=== PATIENT | female | born 1985 | race Caucasian/White ===

== ENCOUNTER 2016-08-25 11:47 | Day surgery (SDC) | payer OTHER ==
[~2016-08-25] VITALS: Ht 172.7 cm; Wt 55.6 kg
[2016-08-25] VITALS (8 sets, daily range): BP systolic 99–119; BP diastolic 51–74; PULSE 63–77; RESP 15–26; O2SAT 97–100
[~2016-08-25 11:47] MED LIST: CALC-952 PO; MISO200T4 VAGINAL
[2016-08-25] MEDS ORDERED: Ondansetron 2 mg/mL 2 mL Inj ONE (11:48)
[2016-08-25] MEDS ORDERED: fentaNYL-PF 50 mCg/mL 2 mL Inj ONE (11:48)
[2016-08-25] MEDS ORDERED: Dexamethasone 4 mg/mL Inj ONE (11:48)
[2016-08-25] MEDS ORDERED: Phenylephrine/NS 100 mCg/mL 10 mL Syringe IVPUSH ONE (11:48)
[2016-08-25] MEDS ORDERED: MetoCLOpramide 5 mg/mL 2 mL Inj ONE (11:48)
[2016-08-25] MEDS ORDERED: Propofol 10,000 mCg/mL 20 mL Inj ONE (11:48)
[2016-08-25] MEDS: Lactated Ringer's 1,000 ML IV SCH ×2 (12:38→13:55)
[2016-08-25] MEDS: fentaNYL-PF 50 mCg/mL 2 mL Inj ONE ×2 (12:44→12:50)
--- NOTE | 2016-08-25 13:43 | PCM.HPANE ---
Patient Data Surgeon Admitting Provider: Attending Provider:Gerardo Nguyen MD Primary Care Physician:Conchis Mcconnell MD Other Provider:Sameera Watkinsingham Anesthesia Reason for Visit Excessive Menstruation Ht/WT & BMI Height (Feet): 5 Height (Inches): 6 Weight (Kilograms): 54.884 Body Mass Index 19.00 Allergies Coded Allergies: citalopram hydrobromide (Verified Allergy, Severe, rash,ITCHING, 08/23/16) Uncoded Allergies: oral pain meds (percocet,vicodin,tyl#3) (Adverse Reaction, Severe, N&V, 05/30) Past Anesthesia History Anesthesia History: Denies:: Anesthesia Reactions, Malignant Hyperthermia Diabetes History Hx Diabetes?: No MRSA MRSA: No Medications Reported Medications Misoprostol 200 Mcg [id number] Mcg VAGINAL 6H PRIOR TO SURGERY 08/23/16 Calcium Carbonate/Vitamin D3 (Calcium 500 mg Chewable Tablet)1 Each Tab.chew1 Each PO DAILY 08/23/16 History History of ENT Problems?: No Hx of Heart Problems?: No Cardiovascular History: Denies:: Congestive Heart Failure Heart Murmur Hypertension Hx of Respiratory Problem?: No Respiratory History: Denies:: Tuberculosis Use of C-PAP Machine Hx Neurologic Problems?: Yes Neurological History: Positive for:: Headaches Hx of GI Problems?: No Gastrointestinal History: Positive for:: Heartburn (OCCASIONALLY) Hx of Problems?: No Genitourinary History: Positive for:: Urinary Tract Infection (HX OF) Female Hx: Denies:: Currently (S/P BTL HX MISSED AB'S X2,TOXIC SHOCK SYND 2016 FROM RETAINED TAMPON) Skin History: Denies:: History Skin Disorders? Pressure Ulcers Hx Musculoskeletal Problems?: No Hx of Psycho/Social Problems?: Yes Psycho Social History: Positive for:: Hx Depression (HX OF) Denies:: Suicide Attempt (SUICIDAL IDEATION & SELF-MUTILATION (FOREARM CUTTING ) A TEEN) Hx Surgeries?: Yes (BTL) Hx Any Other Health Problems?: Yes Other History: Positive for:: Hospitalization (CHILDBIRTH) Denies:: Cancer Endocrine Disease Thyroid Disease History Blood Transfusions: Denies:: Blood Transfusions Hx Diabetes: No Hx Alcohol Use: Yes (MINIMAL)Hx Substance Use: No Smoking Status: Current Every Day Smoker Have You Smoked inLast 12 mo: YesApprox How Many Cigarettes/day: 1 PPD Stop/Bang S-Snoring: Do You Snore Loudly: No T-Tired: feel tired, fatigued: No O-Obsered: Observed not breath: No P-Blood Pressure: treated: No B- Body Mass Index > 35 kg/m2: No A- Age over 50: No N- Neck Large Circumference: No G- Gender Male: No DENNYS Total Score: 0 Risk Assessment Category Category 1A: Patient has history of documented sleep apnea, and HAS NOT received any narcotic, sedative or anesthesia administration during this stay. Category 1B: Patient has history of documented sleep apnea, and HAS received any narcotic , sedative or anesthesia administration during this stay Category 2: Patient has SUSPECTED Obstructive Sleep Apnea, and HAS received any narcotic , sedative or anesthesia administration during this stay. Category 3: Patient has SUSPECTED Obstructive Sleep Apnea and HAS NOT received narcotic, sedative or anesthesia administration during this stay. Category 4: Outpatient in Procedural Areas with known sleep apnea or who screen positive for High Risk via the STOP/BANG questionnaire. Exam Exam General Appearance: Alert, Oriented X3, Cooperative, No Acute Distress HEENT/AIRWAY: MP 2 Lungs: Clear to Auscultation Heart: Exam Unremarkable Plan Impression Patient chart reviewed, patient interviewed and anesthestic plan with risks, benefits, and alternatives discussed, and informed consent obtained. ASA Physical Status: ASA2 Mod Systemic Disease Anesthetic Plan: GA Bene/Risks/Altern/Consents: Yes HP Complete Prior to Induction: Yes Glenroy Dunne MD Aug 25, 2016 07:43
[2016-08-25] MEDS ORDERED: Lactated Ringer's 1,000 ML IV SCH (14:06)
[2016-08-25] MEDS ORDERED: Lactated Ringer's 500 ML IV PRN (14:06)
[2016-08-25] MEDS ORDERED: EPHEDrine Sulfate 50 mg/mL Inj IVPUSH PRN (14:10)
[2016-08-25] MEDS ORDERED: MetoCLOpramide 5 mg/mL 2 mL Inj IVPUSH PRN (14:10)
[2016-08-25] MEDS ORDERED: HYDROmorphone 1 mg/mL Inj IVPUSH PRN (14:10)
[2016-08-25] MEDS ORDERED: Dexamethasone 4 mg/mL Inj IVPUSH PRN (14:10)
[2016-08-25] MEDS ORDERED: fentaNYL-PF 50 mCg/mL 2 mL Inj IVPUSH PRN (14:10)
[2016-08-25] MEDS ORDERED: Ondansetron 2 mg/mL 2 mL Inj IVPUSH PRN ×2 (14:10→15:00)
[2016-08-25] MEDS ORDERED: Phenylephrine 10,000 mCg/mL Inj IVPUSH PRN (14:10)
[2016-08-25] MEDS ORDERED: diphenhydrAMINE 25 mg Capsule PO PRN (15:00)
--- NOTE | 2016-08-25 15:05 | PCM.ANEP1 ---
Post Anesthesia Phase 1 PACU Phase 1 Assessment Vital Signs Vital Signs Date Time Temp Pulse Resp B/P Pulse Ox O2 Delivery O2 Flow Rate FiO2 08/25/16 12:17 36.7 72 18 119/74 100 Room Air Anesthetic Administered: GA Level of Alertness: Sleeping, hard to arouse FAJARDO's with Equal Strength: Yes Oxygen Delivery: Room Air Lungs: Clear to Auscultation Glenroy Dunne MD Aug 25, 2016 15:05
--- NOTE | 2016-08-25 15:09 | PCM.ANEP2 ---
Post Anesthesia Evaluation ASA/CMS Post Anesthesia VS in Patient's Normal Range?: Yes Resp Stable; Airway Patent?: Yes CV Function & Hydration Stable: Yes Mental Status Recovered?: Yes Pain control Satisfactory?: Yes N/V Control Satisfactory?: Yes Glenroy Dunne MD Aug 25, 2016 15:09
--- NOTE | 2016-08-25 16:35 | OP ---
[address] [address] OPERATIVE REPORT PATIENT: MARIAN GOODWIN : 1985 MR#: [id number] ADMIT: 08/25/2016 JOB ID: [id number] DATE OF SURGERY: 08/25/2016 PREOPERATIVE DIAGNOSIS(ES): A 31-year-old 6, para 4-0-2-4 with five years of menorrhagia, endometrial biopsy negative in August 2015.Normal pelvic ultrasound on November 21, 2015. The patient has migraine headache with aura and history of five years of cigarette smoking. Estrogen is contraindicated. She also declined hormonal intrauterine device and she has a prior history of tubal sterilization in 2009 and opted for endometrial ablation. POSTOPERATIVE DIAGNOSIS(ES): A 31-year-old 6, para 4-0-2-4 with five years of menorrhagia, endometrial biopsy negative in August 2015.Normal pelvic ultrasound on November 21, 2015. The patient has migraine headache with aura and history of five years of cigarette smoking. Estrogen is contraindicated. She also declined hormonal intrauterine device and she has a prior history of tubal sterilization in 2009 and opted for endometrial ablation. PROCEDURE: 1. Hysteroscopy, dilatation and curettage. 2. NovaSure endometrial ablation. SURGEON: Gerardo Nguyen MD. 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 COMPLICATIONS: None. PACKS: None. DRAINS: None. CATHETERS: In and out catheter at the beginning of the procedure with approximately 50 cc out of clear urine. BLOOD LOSS: 30 cc. IV FLUIDS: 900 cc of crystalloid. DISTENTION MEDIA: For hysteroscopy was normal saline with a deficit of 100 cc at the end of the procedure. SPECIMEN REMOVED: Cervical and endometrial curettage sent to pathology, two specimens. ANESTHESIA: General endotracheal. FINDINGS: 1. Examination under anesthesia revealed average-sized anteverted uterus. No adnexal masses appreciated bilaterally. 2. Hysteroscopic examination showed patent tubal ostia bilaterally. No polyps. No fibroids. No masses in endometrium. Patient started her menstruation today. 3. Ablation findings: Cervical length 3 cm. Uterine cavity length 5 cm. Uterine cavity maximum width achieved 3.9 cm. Ablation cycle lasted for 1 minute and 16 seconds. PROCEDURE IN DETAIL: Risks, benefits and alternatives of the procedure were discussed with the patient. Informed consent signed. The patient moved to the OR with IV running. After general anesthesia was found to be adequate, the patient was placed in dorsal lithotomy position. Examination under anesthesia revealed the above findings. The patient was then prepped and draped in the normal sterile fashion. Weighted speculum inserted into the patient's vagina. Anterior lip of the cervix was grasped with a single-tooth tenaculum. The uterus was sounded to 8 cm. Cervical length was noted to be 3 cm. Then, the cervix was dilated up to Hegar dilator #7 and then MyoSure hysteroscope was introduced into the patient's uterus. Upon good visualization, after distention with normal saline, the above findings were noted. Then, the hysteroscope was removed and cervical curettage performed followed by endometrial curettage using sharp curette. The cervix was dilated up to Hegar dilator #8 and the NovaSure device was checked outside the patient and confirmed to have intact array. Then the array was retracted and the NovaSure device introduced into the patient's uterus with uterine cavity length of 5 cm adjusted, and then with appropriate movements and while opening the array gradually, maximum cavity width achieved with 3.9 cm. The cavity assessment was completed followed by completed ablation cycle that lasted for 1 minute and 16 seconds. Then, the NovaSure device was removed from the patient's uterus after closing the array and it was opened again outside the patient and tested to be still intact. A 2nd look with MyoSure hysteroscope confirmed adequate ablation of the entire endometrial cavity. Pictures taken. All instruments removed from the patient's vagina. Single-tooth tenaculum insertion site was bleeding. Pressure did not control bleeding, so Monsel solution was applied. Good hemostasis was assured. The patient tolerated the procedure well. Sponge and instrument counts were correct x2. The patient was recovered in a stable condition. Dr. Nguyen was present and scrubbed for the entire procedure. KIMBERLYN
--- NOTE | 2016-08-26 14:21 | PATH ---
SURGICAL PATHOLOGY Attending Physician:Gerardo Nguyen MD CASE STATUS: Signed Out PATIENT NAME: MARIAN GOODWIN PID: [id number] : 1985 DATE COLLECTED:08/25/2016 22:29 SPECIMEN: 1: Endocervix, Curettage 2: Endometrium, Curettage CLINICAL HISTORY: EXCESSIVE MENSTRUATION 1). ENDOCERVICAL CURETTINGS 2). ENDOMETRIAL CURETTINGS FINAL DIAGNOSIS: 1.ENDOCERVICAL CURETTINGS: FRAGMENTS OF ENDOCERVICAL TISSUE, SQUAMOUS EPITHELIUM, AND PROLIFERATIVE ENDOMETRIUM, ALL NEGATIVE FOR ATYPIA. 2.ENDOMETRIAL CURETTINGS: FRAGMENTS OF PROLIFERATIVE ENDOMETRIUM WITH CHANGES OF GLANDULAR AND STROMAL BREAKDOWN, NEGATIVE FOR ATYPIA. ICD10 CODE N92 GROSS DESCRIPTION: The specimen is received in two formalin filled containers labeled with the patient's name. 1). The specimen is sublabeled "endocervical curettings" and consists of a less than 0.25 cc aggregate of tissue, mucoid material and blood which is filtered and entirely submitted in cassette 1A. 2). The specimen is sublabeled "endometrial curettings" and consists of approximately a 1.0 cc aggregate of tissue, mucoid material blood which is filtered and entirely submitted in cassette 2A. 08/25/2016 DAC MICRO DESCRIPTION: See diagnosis. ICD-9 CODES: CPT CODES: 1: 57057 2: 24096 Electronically Signed Out Gregg Trujillo MD [facility] Pathology [facility], [place] [address] Technical component performed at [facility], [address] [place] [address] Ave[address], [place], [address]
== END 2016-08-25 23:59 | disposition home or self-care (01) ==
LOC: SAS 11:47
PROVIDERS: ATTEND Obstetrics & Gynecology
DX: N92.0 Excessive and frequent menstruation with regular cycle (principal); F17.210 Nicotine dependence, cigarettes, uncomplicated
CPT/HCPCS: 58563; J1100; J2175; J2250; J2370; J2405; J2765; J7120

== ENCOUNTER 2017-05-03 18:47 | Emergency (ER) | payer OTHER ==
[~2017-05-03] VITALS: Ht 171.4 cm; Wt 58.2 kg
[2017-05-03 18:55] VITALS: BP 125/70; RESP 16; O2SAT 99
--- NOTE | 2017-05-03 19:21 | ED.REPORT ---
HPI-General Illness Date of Service May 03, 2017 ED Provider: Gregg Thomas MD Pt is a healthy 31 year old female who presents to the ED c/o facial pain and numbness from a possible sinusitis onset 4 days ago. She went to three days ago for similar symptoms in which they tested for strep and influenza that was negative, so they sent her home with a diagnosis of a head cold. Additional symptoms include nasal congestion, rhinorrhea, cough, gum pain, dentition pain, jaw pain, mild ear pain, chest pain when coughing, and intermittent sore throat with associated dysphagia. Pt denies diarrhea, fever, or vomiting. Nursing Notes Stated Complaint: POSS SINUS INFECTION Chief Complaint: ENT & Mouth Nursing Notes Reviewed: Yes Allergies: Coded Allergies: citalopram hydrobromide (Verified Allergy, Severe, rash,ITCHING, 08/23/16) Uncoded Allergies: oral pain meds (percocet,vicodin,tyl#3) (Adverse Reaction, Severe, N&V, 05/30) Scheduled Calcium Carbonate/Vitamin D3 (Calcium 500 mg Chewable Tablet) 1 Each Tab.chew 1 EACH PO DAILY Misoprostol (Misoprostol) 200 Mcg Tablet 200 MCG VAGINAL 6H PRIOR TO SURGERY Triamcinolone Acetonide (Nasacort) 10.8 Ml [place] 10.8 ML NS DAILY General Time Seen by MD: 19:21 Chief Complaint Other (Facial pain and numbness) Hx Obtained From: Patient Arrived By: Walk-in Sudden in Onset?: No Onset Occurred: 4 days ago Symptom Duration: Constant Quality: Painful Severity: Current: Mild Severity: Maximum: Moderate Recent Healthcare: No recent doctor visit, No recent hospitalization Similar Sx Previous: No Past Medical History Past Medical History None Past Surgical History Reports: Tubal ligation Smoking History Current Every Day Smoker Social History having heavy periods, reason for IUD placement Alcohol Use: "Social" Drug Use: Denies drug use Other Social History: Good social support Occupation lives with boyfriend and 4 children Ambulatory Status Independent Review of Systems Facial pain Rhinorrhea Gum pain Jaw pain Full Review of Systems Constitutional: Denies: Fever Ears / Nose / Throat: Reports: Earache bilateral (mild), Nasal congestion, Sinus problem, Sore throat (intermittent with associated dysphagia), Toothache Respiratory: Reports: Prod cough, clear Cardiovascular: Reports: Chest pain (when coughing) GI: Denies: Diarrhea, Vomiting Complete sys rev & neg: except as marked. Physical Exam Vital Signs Vital Signs Date Time Temp Pulse Resp B/P Pulse Ox O2 Delivery O2 Flow Rate FiO2 05/03/17 20:29 36.8 92 14 122/68 98 Room Air 05/03/17 18:55 36.8 95 16 125/70 99 Room Air Initial VS: Reviewed Extremities: Vascular intact, Neuro intact, No swelling, No tenderness Skin: Warm, Dry, No cyanosis Neurologic: Alert, Oriented, Nonfocal Psychiatric: Mood/affect normal, Behavior normal, Normal thought content General/Constitutional: Awake, Alert Head / Eyes: Atraumatic, Normocephalic, EOMI No facial swelling Facial tenderness to percussion ENT: Atraumatic, Airway patent Nasal mucosa boggy, clear mucus Post nasal drip in back of throat, clear mucus Neck: Supple, Full range of motion No cervical adenopathy Respiratory / Chest: Atraumatic, Breath sounds NL, Breath sounds = bilat, No respiratory distress Re-Eval/Medical Decision Source of Hx: Old records Time of Eval: 19:50 Re-Evaluation/Progress Note: Discussed plan for discharge. Patient understands and agrees with plan. F/U instructions and RTER warnings given. All questions addressed at this time. Counseled Regarding: Diagnosis, Lab results, Need for follow-up, When/why to return to ED Discharge & Departure Primary Impression: Acute rhinosinusitis Disposition: Home Discharge Condition All VS Reviewed: Yes Condition: Stable Patient Instructions: Upper Respiratory Infection (ED) Additional Instructions: Emergency department evaluation including interview and examination. Symptoms and examination are consistent with a viral upper respiratory infection leading to sinus congestion. Antibiotics are not indicated in this situation. Things that will help him feel better include using nasal steroid solution to rinse nostrils1-2 times daily, using an OTC nasal decongestant such as afrin or sudafed nasal spray for no more than 3 days, Use a nasal steriod spray daily. Tylenol or ibuprofen as needed for pain. Re-check at urgent care if not improved in 4-5 days. Return to ED for trouble breathing, fevers, severe headache. Referrals: Conchis Mcconnell MD (PCP) Scribe Attestation Portions of this note were transcribed by Snow Shoemaker. I, Dr. Slack, personally performed the history, physical exam and medical decision-making; I reviewed and confirmed the accuracy of the information in the transcribed note. copies to: Conchis Mcconnell MD, Donald L MD May 03, 2017 19:21 Snow Shoemaker May 03, 2017 19:25
[2017-05-03] MEDS ORDERED: TRIA10.8 NS (20:08)
[2017-05-03 20:29] VITALS: BP 122/68; PULSE 92; RESP 14; O2SAT 98
== END 2017-05-03 20:15 | disposition home or self-care (01) ==
LOC: SED 18:47
DX: J01.90 Acute sinusitis, unspecified (principal); R20.0 Anesthesia of skin; R13.10 Dysphagia, unspecified; F17.200 Nicotine dependence, unspecified, uncomplicated; Z88.8 Allergy status to other drugs, medicaments and biological substances